=== PATIENT | female | born 2000 | race Caucasian/White ===

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

== ENCOUNTER 2020-03-05 18:13 | Emergency (ER) | payer OTHER ==
[2020-03-05] MEDS ORDERED: Morphine 4 MG/ML VIAL ONE (18:31)
[2020-03-05] MEDS ORDERED: Ondansetron PF 4 MG/2 ML Vial ONE (18:32)
[2020-03-05 18:55] LABS: #Lymphocytes 1.4 thou/uL (1.20-3.40); #Monocytes 0.7 thou/uL (0.11-0.59); %Basophils 0.8 % (0.0-1.0); %Eosinophils 0.5 % (0.0-10.0); %Lymphocytes 26.8 % (21.0-51.0); %Monocytes 14.3 % (0.0-10.0); %Neutrophils 57.7 % (42.0-75.0); Mean Corpuscular HGB CONC 34.2 g/dL (32.0-36.0); Mean Corpuscular Hemoglobin 30.3 pg (27.0-31.0); Mean Corpuscular Volume 88.6 fL (78.0-98.0); Platelet Count 217 thou/uL (130-400); RBC Distribution Width 11.6 % (11.5-14.5); Red Blood Cell (RBC) Count 4.29 mill/uL (4.20-5.40); White Blood Cell (WBC) Count 5.2 thou/uL (4.8-10.8)
[2020-03-05 19:09] LABS: ALT (SGPT) 9 U/L (8-55); AST (SGOT) 15 U/L (5-34); Albumin 4.4 g/dL (3.5-5.0); Alkaline Phosphatase 55 U/L (40-110); Anion Gap 14 mmol/L (10-20); BUN (Urea Nitrogen) 11 mg/dL (7.0-18.7); Bilirubin, Total 0.3 mg/dL (0.2-1.2); Calc. Creatinine Clearance 0 mL/min (70-130); Calcium 8.7 mg/dL (7.8-10.44); Carbon Dioxide 23 mmol/L (22-29); Chloride 105 mmol/L (98-107); Globulin 2.7 g/dL (2.4-3.5); Glucose 86 mg/dL (70-105); Potassium 3.8 mmol/L (3.5-5.1); Protein, Total 7.1 g/dL (6.0-8.3); Sodium 138 mmol/L (136-145)
--- NOTE | 2020-03-05 20:30 | ULT ---
PELVIC ULTRASOUND: 03/05/20 HISTORY: Abdominal pain in a patient with positive . COMPARISON: 02/25/20. FINDINGS: Multiple transabdominal sonographic images of the pelvis are obtained. Fluid collection within the en dometrial canal is again seen but is now larger in size with evidence of a pole and a yolk sac. [place]-rump length measures 0.3 cm corresponding to gestational age by ultrasound of 6 weeks. Gestati onal age by the last menstrual period is 8 weeks and 2 days. Cardiac Doppler does detect heart tones with a heart rate of 108 beats per minute. The ovaries demonstrate a normal sonographic appearance bilaterally. Doppler evaluation with spectral analysis and color flow evaluation of each ovary demonstrates flow in each ovary. No free fluid is seen in the cul-de-sac. IMPRESSION: 1. Evidence of a single intrauterine gestation with heart tones documented. Estimated gest ational age by measurement of the crown-rump length is 6 weeks. 2. Normal appearing bilateral ovaries with flow seen in each ovary. POS: [facility]
--- NOTE | 2020-03-05 21:38 | MRI ---
MRI OF THE ABDOMEN WITHOUT CONTRAST: 03/05/20 HISTORY: female with right lower quadrant abdominal pain. TECHNIQUE: Multiplanar and multisequence MR images were obtained of the abdomen without contrast. FINDINGS: There is a small intrauterine gestational sac. This does not yet contain a pole that can be marcial reciated. No stranding changes seen surrounding the cecum. No free fluid is seen in the abdomen. The appendix i s not definitely identified, but no inflammatory changes are seen adjacent to the cecum. No enlarged dilated tubular structure is seen to suggest acute appendicitis. There is a questionable normal appea ring appendix visualized on the sagittal sequence on image 17 of 34. IMPRESSION: No evidence of acute appendicitis. POS: [facility]
== END 2020-03-05 22:09 | disposition home or self-care (01) ==
LOC: ERS 18:13
DX: O99.891 Other specified diseases and conditions complicating pregnancy (principal); R10.31 Right lower quadrant pain; O99.511 Diseases of the respiratory system complicating pregnancy, first trimester; J45.909 Unspecified asthma, uncomplicated; O99.281 Endocrine, nutritional and metabolic diseases complicating pregnancy, first trimester; E03.9 Hypothyroidism, unspecified; O99.011 Anemia complicating pregnancy, first trimester; Z3A.01 Less than 8 weeks gestation of pregnancy; U07.1 COVID-19; J02.9 Acute pharyngitis, unspecified
CPT/HCPCS: 74181; 76856; 80053; 84702; 85025; 86900; 86901; 87070; 87086; 87635; 93976; 96374; 96375; J2270; J2405; U0003